=== PATIENT | female | born 1985 ===

== ENCOUNTER 2024-08-30 07:14 | Outpatient (CLI) | payer OTHER ==
[2024-08-30] MEDS ORDERED: Iopamidol 370 76% 100 ML VIAL ONE (09:41)
== END 2024-08-30 07:15 | disposition home or self-care (01) ==
LOC: CSHCT 07:14
PROVIDERS: ATTEND Student in an Organized Health Care Education/Training Program
DX: R51.9 Headache, unspecified (principal)
CPT/HCPCS: 70470